=== PATIENT | female | born 1995 | race Caucasian/White ===

== ENCOUNTER 2020-04-30 12:10 | Emergency (ER) | payer OTHER ==
[~2020-04-30] VITALS: Ht 172.7 cm; Wt 75.1 kg
[2020-04-30] MEDS ORDERED: BCP PO (12:17)
[2020-04-30] MEDS ORDERED: PYRI1TAB5 PO (13:29)
[2020-04-30] MEDS ORDERED: KEFL500C17 PO (13:29)
[2020-04-30 13:35] VITALS: BP 119/67
== END 2020-04-30 13:36 | disposition home or self-care (01) ==
LOC: M ED 12:10
DX: N39.0 Urinary tract infection, site not specified (principal)

== ENCOUNTER 2021-06-24 09:10 | Emergency (ER) | payer OTHER ==
[~2021-06-24] VITALS: Ht 172.7 cm; Wt 72.7 kg
[~2021-06-24 09:10] MED LIST: BCP PO; KEFL500C17 PO; PYRI1TAB5 PO
[2021-06-24 09:11] VITALS: BP 129/88
[2021-06-24] MEDS ORDERED: IBUP200T46 PO (09:27)
== END 2021-06-24 12:40 | disposition home or self-care (01) ==
LOC: M ED 09:10
DX: R06.02 Shortness of breath (principal)

== ENCOUNTER 2022-05-08 17:11 | Emergency (ER) | payer OTHER ==
[~2022-05-08] VITALS: Ht 182.9 cm; Wt 76.7 kg
[~2022-05-08 17:11] MED LIST changes: +IBUP200T46 PO
[2022-05-08] MEDS ORDERED: COLA100C5 PO (18:01)
[2022-05-08] MEDS ORDERED: ACET-683 PO (18:01)
[2022-05-08] MEDS ORDERED: MULTTAB20 PO (18:01)
[2022-05-08 19:44] LABS: BASO % 0.2 % (0.0-1.0); EOS # 0.1 10^3/uL (0.0-0.5); EOS % 0.9 % (0.0-3.0); HEMATOCRIT 42.1 % (36.0-47.0); HEMOGLOBIN 13.9 g/dl (12.0-15.5); LYMPH # 2.5 10^3/uL (1.5-5.0); LYMPH % 30.1 % (24.0-44.0); MEAN CORPUSCULAR HEMOGLOBIN 32.3 pg (27.0-33.0); MEAN CORPUSCULAR VOLUME 97.7 fl (80.0-96.0); MONO # 0.9 10^3/uL (0.0-0.8); MONO % 10.4 % (2.0-8.0); NEUTROPHILS # 4.9 10^3/uL (1.5-8.5); NEUTROPHILS % 57.8 % (36.0-66.0); PLATELET COUNT, AUTOMATED 160 10^3/uL (150-450); RED BLOOD COUNT 4.31 10^6/uL (4.00-5.40); WHITE BLOOD COUNT 8.4 10^3/uL (4.0-10.0)
[2022-05-08 21:16] VITALS: BP 116/66
== END 2022-05-08 21:18 | disposition home or self-care (01) ==
LOC: M ED 17:11
DX: O9A.212 Injury, poisoning and certain other consequences of external causes complicating pregnancy, second trimester (principal); M54.50 Low back pain, unspecified; W01.0XXA Fall on same level from slipping, tripping and stumbling without subsequent striking against object, initial encounter; Z3A.16 16 weeks gestation of pregnancy; Z79.810 Long term (current) use of selective estrogen receptor modulators (SERMs); Z79.899 Other long term (current) drug therapy

== ENCOUNTER → 2022-07-02 | Outpatient (CLI) | payer OTHER ==
[~2022-07-02] MED LIST changes: +ACET-683 PO; +COLA100C5 PO; +MULTTAB20 PO
== END ==
LOC: M RAD 09:54
PROVIDERS: ATTEND Registered Nurse
DX: Z34.92 Encounter for supervision of normal pregnancy, unspecified, second trimester (principal); Z3A.24 24 weeks gestation of pregnancy

== ENCOUNTER 2022-09-11 11:05 | Outpatient (CLI) | payer OTHER ==
[~2022-09-11] VITALS: Ht 172.7 cm; Wt 88.1 kg
[2022-09-11 11:18] VITALS: BP 127/69
[2022-09-11] MEDS ORDERED: ZOLO50TA PO (11:18)
== END 2022-09-11 12:58 | disposition home or self-care (01) ==
LOC: M LDO 11:05
PROVIDERS: ATTEND Advanced Practice Midwife
DX: O26.893 Other specified pregnancy related conditions, third trimester (principal); N89.8 Other specified noninflammatory disorders of vagina; Z3A.34 34 weeks gestation of pregnancy
CPT/HCPCS: 59025; 76815; G0463

== ENCOUNTER 2022-10-20 03:17 | Inpatient (IN) | payer OTHER ==
[2022-10-20] VITALS (45 sets, daily range): BP systolic 96–141; BP diastolic 54–88
[~2022-10-20] VITALS: Ht 172.7 cm; Wt 93.0 kg
[~2022-10-20 03:17] MED LIST changes: +ZOLO50TA PO
[2022-10-20] MEDS ORDERED: HOME MED LIST COMPLETE! XX SCH (03:55)
[2022-10-20] MEDS ORDERED: LACTATED RINGER'S 1000 ML IV STA (04:10)
[2022-10-20] MEDS ORDERED: OXYTOCIN INJ 10UNITS/ML 1ML VIAL IM PRN (04:10)
[2022-10-20] MEDS ORDERED: OXYTOCIN INJ 10UNITS/ML 1ML VIAL IV PRN (04:10)
[2022-10-20] MEDS ORDERED: TRANEXAMIC ACID INJection 1,000 MG in NS 100 ML IV PRN (04:10)
[2022-10-20] MEDS ORDERED: OXYTOCIN DRIP 30 UNITS in IV 1 EA IV PRN ×6 (04:10)
[2022-10-20] MEDS ORDERED: PENICILLIN G POTASSIUM 5 MU IV 5 MU in D5W MINI-BAG PLUS 100 ML IV STA (04:10)
[2022-10-20] MEDS ORDERED: LIDOCAINE 1% MDV 20ML VIAL INFIL PRN (04:10)
[2022-10-20] MEDS ORDERED: CARBOPROST TROMETHAMINE 250 MCG/ML AMP IM PRN (04:10)
[2022-10-20] MEDS ORDERED: LR 1,000 ML IV SCH (04:10)
[2022-10-20] MEDS ORDERED: OXYTOCIN DRIP 30 UNITS in IV 1 EA IV SCH (04:10)
[2022-10-20] MEDS ORDERED: METHYLERGONOVINE MALEATE 0.2MG/ML 1ML VIAL IM PRN (04:10)
[2022-10-20 04:44] LABS: HEMATOCRIT 38.4 % (36.0-47.0); HEMOGLOBIN 13.2 g/dl (12.0-15.5); MEAN CORPUSCULAR HEMOGLOBIN 32.3 pg (27.0-33.0); MEAN CORPUSCULAR HGB CONC 34.4 g/dl (32.0-36.5); MEAN CORPUSCULAR VOLUME 93.9 fl (80.0-96.0); PLATELET COUNT, AUTOMATED 111 10^3/uL (150-450); RED BLOOD COUNT 4.09 10^6/uL (4.00-5.40); WHITE BLOOD COUNT 10.5 10^3/uL (4.0-10.0)
[2022-10-20] MEDS: LR 1,000 ML IV SCH ×2 (04:51→14:03)
[2022-10-20] MEDS ORDERED: NALOXONE INJ 0.4MG/1ML VIAL IV PRN (05:35)
[2022-10-20] MEDS ORDERED: ONDANSETRON 4MG 2ML VIAL IV PRN (05:35)
[2022-10-20] MEDS ORDERED: LR 500 ML IV PRN (05:35)
[2022-10-20] MEDS ORDERED: ePHEDrine SULFATE 25 MG/5 ML(5MG/ML) SYRINGE IVP PRN (05:35)
[2022-10-20] MEDS ORDERED: EPIDURAL/PCA KEYS XX PRN (05:35)
[2022-10-20] MEDS ORDERED: diphenhydrAMINE 50MG/ML VIAL IV PRN (05:35)
[2022-10-20] MEDS ORDERED: FENTANYL 2MCG/ML ROPIVACAINE 0.2% IN 0.9% NACL 100ML IVBAG As Ordered ONE (05:41)
[2022-10-20] MEDS: FENTANYL/ROPIVACAINE/NACL BAG 100 ML EPIDURAL SCH ×2 (05:47→15:21)
[2022-10-20] MEDS: PRENATAL VITAMINS CHEWABLE TABLET PO SCH (09:00)
[2022-10-20] MEDS: SERTRALINE HCL 50 MG TAB PO SCH (09:00)
[2022-10-20] MEDS: PEN G POT 3,000,000 UNIT/50 ML 3,000,000 UNIT in IV 1 EA IV SCH ×2 (09:55→14:03)
[2022-10-20] MEDS ORDERED: METHYLERGONOVINE MALEATE 0.2 MG TAB PO PRN (18:25)
[2022-10-20] MEDS ORDERED: RHOGAM 300MCG (1500IU) INJ IM SCH (18:25)
[2022-10-20] MEDS ORDERED: ANUSOL HC CREAM 30GM TOP PRN (18:25)
[2022-10-20] MEDS ORDERED: MOM 30ML SUSPENSION UDC PO PRN (18:25)
[2022-10-20] MEDS ORDERED: DIBUCAINE 1% OINTMENT 30GM TOP PRN (18:25)
[2022-10-20] MEDS: ACETAMINOPHEN 500 MG TAB PO PRN (21:12)
[2022-10-21] MEDS: IBUPROFEN 800 MG TAB PO PRN ×3 (03:06→20:19)
[2022-10-21] MEDS: PRENATAL VITAMINS CHEWABLE TABLET PO SCH (08:30)
[2022-10-21] MEDS: SERTRALINE HCL 50 MG TAB PO SCH (08:30)
[2022-10-21] MEDS: ACETAMINOPHEN 500 MG TAB PO PRN (08:31)
[2022-10-21 18:00] VITALS: BP 130/88
[2022-10-21] MEDS: DOCUSATE SODIUM 100MG CAPSULE PO PRN (20:18)
[2022-10-22] MEDS: ACETAMINOPHEN 500 MG TAB PO PRN ×2 (00:21→10:12)
[2022-10-22] MEDS: IBUPROFEN 800 MG TAB PO PRN (05:54)
[2022-10-22 06:00] VITALS: BP 130/75
[2022-10-22] MEDS: SERTRALINE HCL 50 MG TAB PO SCH (09:57)
[2022-10-22] MEDS: PRENATAL VITAMINS CHEWABLE TABLET PO SCH (09:57)
[2022-10-22] MEDS: DOCUSATE SODIUM 100MG CAPSULE PO PRN (10:12)
== END 2022-10-22 13:00 | disposition home or self-care (01) | DRG 807 ==
LOC: M LDO 03:17 → M LDI 03:48 → M OBS 20:08
PROVIDERS: ADMIT Obstetrics & Gynecology; ATTEND Obstetrics & Gynecology
PROC: 10E0XZZ Delivery of Products of Conception, External Approach (ICD-10-PCS; principal; 2022-10-20)
PROC: 0KQM0ZZ Repair Perineum Muscle, Open Approach (ICD-10-PCS; 2022-10-20)
DX: O48.0 Post-term pregnancy (principal); Z37.0 Single live birth; Z3A.40 40 weeks gestation of pregnancy; O70.1 Second degree perineal laceration during delivery

== ENCOUNTER → 2023-12-09 | Outpatient (CLI) | payer OTHER | LOC: M RAD 08:34 | PROVIDERS: ATTEND Physician Assistant Medical | DX: J31.0 Chronic rhinitis (principal) ==